=== PATIENT | male | born 1985 | race Two or more races ===

== ENCOUNTER 2023-08-31 12:36 | Emergency (ER) | payer SELFPAY ==
[~2023-08-31] VITALS: Ht 172.7 cm; Wt 63.0 kg
[2023-08-31 13:39] VITALS: BP 113/81; PULSE 87; RESP 16; TEMP 97.4; O2SAT 97
[2023-08-31] MEDS ORDERED: cefTRIAXone SOD 1,000 MG VL IM ONE (14:00)
[2023-08-31] MEDS ORDERED: AMOX500T86 PO (14:01)
[2023-08-31] MEDS ORDERED: AZIT500T66 PO (14:01)
[2023-08-31] MEDS ORDERED: PROM1SOL4 PO (14:01)
== END 2023-08-31 14:12 | disposition home or self-care (01) ==
LOC: ER 12:36
DX: J18.8 Other pneumonia, unspecified organism (principal); J03.90 Acute tonsillitis, unspecified
CPT/HCPCS: 71045; 96372; 99283; J0696

== ENCOUNTER 2023-09-14 11:25 | Emergency (ER) | payer MEDICAID, OTHER ==
[~2023-09-14] VITALS: Ht 172.7 cm; Wt 63.1 kg
[~2023-09-14 11:25] MED LIST: AMOX500T86 PO; AZIT500T66 PO; PROM1SOL4 PO
[2023-09-14 12:33] VITALS: BP 123/80; PULSE 120; RESP 16; O2SAT 94
[2023-09-14 13:20] LABS: Urine Bacteria NONE SEEN /hpf (None Seen); Urine Blood Negative /uL (Negative); Urine Clarity Clear (Clear); Urine Color Yellow (Yellow); Urine Mucus FEW (None Seen); Urine Protein, UAD 1+ (Negative); Urine Specific Gravity 1.027 (1.001-1.035); Urine Sperm PRESENT /hpf (None Seen); Urine Urobilinogen Normal (Negative); Urine WBC 3 /hpf (0 - 3); Urine pH 5.5 (5.0-8.0)
[2023-09-14 13:55] LABS: Chloride 105 mmol/L (98-107); Sodium 137 mmol/L (136-145)
[2023-09-14 13:56] LABS: Anion Gap 5 (5-15); Carbon Dioxide 27 mmol/L (20-30)
[2023-09-14 13:57] LABS: Calcium 8.8 mg/dL (8.7-10.4)
[2023-09-14 13:59] LABS: Basophils # (auto) 0 10 ^3/uL (0-0.2); Basophils % (auto) 0.1 % (0.0-2.0); Eosinophils # (auto) 0 10 ^3/uL (0-0.8); Eosinophils % (auto) 0.1 % (0.0-7.0); Hematocrit 46.9 % (41.0-53.0); Hemoglobin 15.5 g/dL (13.5-17.5); Lymphocytes # (auto) 0.9 10 ^3/uL (0.4-5.4); Lymphocytes % (auto) 6.4 % (10.0-50.0); Mean Corpuscular Hemoglobin 29.9 pg (28.0-32.0); Mean Corpuscular Volume 90.4 fL (80.0-100.0); Monocytes # (auto) 0.5 10 ^3/uL (0-1.3); Monocytes % (auto) 3.6 % (0.0-12.0); Neutrophils # (auto) 12.7 10 ^3/uL (1.6-8.6); Neutrophils % (auto) 89.8 % (37.0-80.0); Red Blood Cells 5.19 10^6/uL (4.5-5.90); White Blood Cell 14.1 10^3/uL (4.4-10.8)
[2023-09-14 14:01] LABS: BUN/Creatinine Ratio 10.7 (10.0-20.0); Blood Urea Nitrogen 9 mg/dL (9-23); Glucose 94 mg/dL (74-106)
[2023-09-14 14:02] LABS: Lipase 48 U/L (12-53)
[2023-09-14] MEDS ORDERED: LEVO500T91 PO (14:35)
== END 2023-09-14 16:18 | disposition home or self-care (01) ==
LOC: ER 11:25
DX: K52.9 Noninfective gastroenteritis and colitis, unspecified (principal); Z79.2 Long term (current) use of antibiotics; Z79.899 Other long term (current) drug therapy
CPT/HCPCS: 36415; 74176; 80048; 81001; 83690; 85025

== ENCOUNTER 2023-10-23 14:38 | Emergency (ER) | payer MEDICAID ==
[~2023-10-23] VITALS: Ht 175.3 cm; Wt 68.4 kg
[~2023-10-23 14:38] MED LIST changes: +LEVO500T91 PO
[2023-10-23] MEDS ORDERED: IBUP-1456 PO (19:03)
[2023-10-23] MEDS ORDERED: HYDR2.5C39 TOP (19:03)
[2023-10-23] MEDS: KETOROLAC TROMETH 60MG/2ML VIAL IM ONE (19:04)
[2023-10-23 19:17] VITALS: BP 128/89; PULSE 83; RESP 18; TEMP 97; O2SAT 99
== END 2023-10-23 19:17 | disposition home or self-care (01) ==
LOC: ER 14:38
DX: K64.4 Residual hemorrhoidal skin tags (principal); Z79.1 Long term (current) use of non-steroidal anti-inflammatories (NSAID); Z79.2 Long term (current) use of antibiotics; Z79.899 Other long term (current) drug therapy
CPT/HCPCS: 96372; 99283; J1885